=== PATIENT | female | born 1985 | race Caucasian/White ===

== ENCOUNTER 2022-06-19 21:35 | Emergency (ER) | payer BC, SELFPAY ==
[2022-06-19 22:33] VITALS: BP 152/95; PULSE 98; RESP 18; TEMP 37.6; O2SAT 98
[2022-06-20 00:08] VITALS: BP 164/85; PULSE 95; RESP 20; TEMP 37.1; O2SAT 97
--- NOTE | 2022-06-20 00:36 | ED.GENADULT ---
HPI - General Adult General Date Seen: 06/20/22 Chief complaint: Nausea/Vomiting Stated complaint: abdominal pain,vomiting Time Seen by Provider: 06/20/22 00:00 Source: patient Mode of arrival: ambulatory Limitations: no limitations History of Present Illness HPI narrative: Patient is a 37-year-old female who felt well until this afternoon when she developed nausea, vomiting, diarrhea. No fevers but some chills. No blood in her stool or vomit. She ate a ham and cucumber sandwich for lunch that she made a couple of days ago. It tasted fine but she is wondering if that is the cause. No one else at home has been ill. She also has some intermittent stomach cramps. Related Data Previous Rx's Medication Instructions Recorded ondansetron HCl 8 mg tablet 8 mg PO Q8H PRN nausea and 06/20/22 vomiting #15 tabs Allergies Allergy/AdvReac Type Severity Reaction Status Date / Time No Known Drug Allergies Allergy Verified 06/19/22 22:36 Review of Systems Narrative: Review of systems is outlined above otherwise noted to be negative. PFSH PFS Social History Smoking Status: Never smoker How often do you have a drink containing alcohol: never AUDIT-C Alcohol total score: 0 Non-prescribed substance use: denies use Exam Narrative: Exam Narrative: Vitals noted. HEENT: Conjunctiva clear. Tympanic membranes are pearly white bilaterally. Posterior pharynx is clear without erythema or exudate. Neck is supple without adenopathy, thyromegaly, carotid bruit. Lungs: Clear to auscultation in all ly. No wheezes, rales, rhonchi. Heart: Regular rate and rhythm without murmur. Abdomen: Soft and nontender. No guarding, rigidity, rebound. Bowel sounds are normal. No palpable masses. Extremities: No cyanosis or edema. Good distal pulses. Skin: No abnormalities noted of the exposed skin. Neurologic: Awake, alert, fully oriented. Neurologic exam is nonfocal. Const: Vital Signs, click to edit/add: Vital Signs - 24 hr 06/19/22 22:33 06/20/22 00:08 Temperature 99.7 F H 98.7 F Pulse Rate [Left P ulse Oximeter] 98 95 Respiratory Rate 18 20 Blood Pressure [Ri ght Upper Arm] 152/95 H 164/85 H Pulse Oximetry 98 97 Oxygen Delivery Me thod Room Air Room Air Course Course Hospital Course: Patient is seen and examined. IV is established and she received 1 L of lactated Ringer's. CBC, BMP, LFTs are ordered. She is given 30 mg of Toradol IV, 4 mg of Zofran IV. Reevaluation(s) Reevaluation #1: Basic metabolic panel and LFTs are normal. CBC shows a white blood count of 13,000, hemoglobin is 11.0 with an MCV of 70. Patient felt much better after the infusion. No vomiting in the department. She did have a couple of loose stools. Vital Signs Vital signs: Initial Vital Signs Temperature 99.7 F H 06/19/22 22:33 Temperature Source Temporal Artery Scan 06/19/22 22:33 Pulse Rate 98 06/19/22 22:33 Pulse Rhythm 06/19/22 22:33 Respiratory Rate 18 06/19/22 22:33 Blood Pressure 152/95 H 06/19/22 22:33 Blood Pressure Mean 114 06/19/22 22:33 Blood Pressure Position Semi-Fowlers 06/19/22 22:33 Pulse Oximetry 98 06/19/22 22:33 Oxygen Delivery Method 06/19/22 22:33 Vital Signs Temperature 99.7 F H 06/19/22 22:33 Pulse Rate 98 06/19/22 22:33 Respiratory Rate 18 06/19/22 22:33 Blood Pressure 152/95 H 06/19/22 22:33 Pulse Oximetry 98 06/19/22 22:33 Oxygen Delivery Method 06/19/22 22:33 Temperature 98.7 F 06/20/22 00:08 Pulse Rate 95 06/20/22 00:08 Respiratory Rate 20 06/20/22 00:08 Blood Pressure 164/85 H 06/20/22 00:08 Pulse Oximetry 97 06/20/22 00:08 Oxygen Delivery Method 06/20/22 00:08 Medical Decision Making Lab Data Labs: Lab Results 06/20/22 06/20/22 Range/Units 00:45 00:45 WBC 13.01 H (4.50-11.00) K/uL RBC 5.14 (4.00-5.20) m/uL Hgb 11.0 L (12.0-16.0) gm/dL Hct 36.1 (33.0-51.0) % MCV 70 L (80-100) fL MCH 21 L (26-34) pg MCHC 31 L (32-36) gm/dL RDW Coeff of Juliana 16.4 H (11.5-15.5) % Plt Count 222 (140-440) K/uL Neut % (Auto) 92.1 H (42.0-72.0) % Lymph % (Auto) 5.1 L (20-44) % [place]eth % (Auto) 2.1 (0.0-11.0) % Eos % (Auto) 0.3 (0.0-7.0) % Baso % (Auto) 0.2 (0.0-3.0) % Neut # (Auto) 12.00 H (1.7-7.0) K/uL Lymph # (Auto) 0.70 L (0.90-2.90) K/uL [place]eth # (Auto) 0.30 (0.00-0.90) K/UL Eos # (Auto) 0.00 (0.00-0.50) K/uL Baso # (Auto) 0.00 (0.00-0.30) K/uL Sodium 141 (135-149) mmol/L Potassium 3.8 (3.6-5.1) mmol/L Chloride 110 (96-114) mmol/L Carbon Dioxide 20 (20-32) mmol/L BUN 16 (5-24) mg/dL Creatinine 0.6 (0.5-1.5) mg/dL Estimated GFR 118 ml/min Glucose 138 H (60-115) mg/dL Calcium 8.9 (8.4-10.6) mg/dL Total Bilirubin 0.9 (0.1-1.5) mg/dL Direct Bilirubin 0.2 (0.0-0.5) mg/dL AST 24 (12-35) U/L ALT 25 (4-35) U/L Alkaline Phosphatase 79 (40-150) U/L Total Protein 8.2 (6.0-8.3) g/dL Albumin 4.7 (3.3-5.0) g/dL Discharge Plan Discharge Clinical Impression: Gastroenteritis Patient Disposition: Home, Self-Care Condition: Improved Additional Instructions: Clear liquids in frequent small amounts. Advance diet slowly as tolerated. Tylenol and Ibuprofen for pain. Zofran for nausea. Follow up in the clinic if not resolving over the next 2-3 days. Best to avoid anti-diarrhea meds for now. Prescriptions: New ondansetron HCl 8 mg tablet 8 mg PO Q8H PRN (Reason: nausea and vomiting) Qty: 15 0RF Follow Up/Referrals: Sonya Villanueva MD [Primary Care Provider] - Stand Alone Forms: [employer] Info Instructions
[2022-06-20] MEDS: KETOROLAC 30 MG/ML inj IVP (00:51)
[2022-06-20] MEDS: ONDANSETRON 2 MG/ML inj 4 MG IVP (00:51)
[2022-06-20] MEDS: LACTATED RINGERS 1000 ML 1,000 ML 500 ML IV (00:52)
[2022-06-20 01:01] LABS: Basophils Percent Auto 0.2 % (0.0-3.0); Eosinophils Percent Auto 0.3 % (0.0-7.0); Hematocrit 36.1 % (33.0-51.0); Immature Granulocytes Pct Auto 0.2 %; Lymphocytes Percent Auto 5.1 % (20-44); Mean Corpuscular HGB Conc 31 gm/dL (32-36); Mean Corpuscular Hemoglobin 21 pg (26-34); Mean Corpuscular Volume 70 fL (80-100); Monocytes Percent Auto 2.1 % (0.0-11.0); Neutrophils Percent Auto 92.1 % (42.0-72.0); Platelet Count* 222 K/uL (140-440); RDW Coefficient of Variation % 16.4 % (11.5-15.5); Red Blood Count 5.14 m/uL (4.00-5.20); White Blood Count* 13.01 K/uL (4.50-11.00)
[2022-06-20 01:03] LABS: Slide Review Reflex No
[2022-06-20 01:13] LABS: Albumin* 4.7 g/dL (3.3-5.0); Chloride* 110 mmol/L (96-114); Sodium* 141 mmol/L (135-149)
[2022-06-20 01:14] LABS: Potassium* 3.8 mmol/L (3.6-5.1)
[2022-06-20 01:16] LABS: Alanine Aminotransferase* 25 U/L (4-35); Alkaline Phosphatase* 79 U/L (40-150); Aspartate Amino Transferase* 24 U/L (12-35); Bilirubin Direct* 0.2 mg/dL (0.0-0.5); Bilirubin Total* 0.9 mg/dL (0.1-1.5); Blood Urea Nitrogen* 16 mg/dL (5-24); Calcium* 8.9 mg/dL (8.4-10.6); Carbon Dioxide* 20 mmol/L (20-32); Creatinine* 0.6 mg/dL (0.5-1.5); Estimated Glomerular Filt Rate 118 ml/min; Glucose* 138 mg/dL (60-115); Total Protein* 8.2 g/dL (6.0-8.3)
== END 2022-06-20 03:09 | disposition home or self-care (01) ==
PROVIDERS: Emergency Provider Family Medicine; PCP Family Medicine
DX: K52.9 Noninfective gastroenteritis and colitis, unspecified (principal)
CPT/HCPCS: 36415; 80048; 80076; 85025; 96374; 96375; 99283; 99284; J1885; J2405; J7120

== ENCOUNTER 2025-04-16 15:23 | Emergency (ER) | payer BC, SELFPAY ==
[2025-04-16] VITALS (19 sets, daily range): BP systolic 120–139; BP diastolic 73–85; PULSE 71–93; RESP 18; TEMP 36.2–37.1; O2SAT 93–100; BMI 33.3
--- NOTE | 2025-04-16 15:46 | ED.NAVMDI ---
HPI - Nausea/Vomiting/Diarrhea General Time Seen by Provider: 15:46 Date Seen: 04/16/25 Chief complaint: Nausea/Vomiting Stated complaint: throwing up for past three hours Time Seen by Provider: 04/16/25 15:46 Source: patient, RN notes reviewed and old records reviewed Mode of arrival: ambulatory Limitations: no limitations History of Present Illness HPI Narrative: Kristy is a 40-year-old female with history of hypertension, GERD who comes to the emergency room for evaluation of persistent vomiting and diarrhea. Earlier in the week Kristy child had vomiting diarrhea overnight. Patient had the sudden onset of vomiting at approximately 1300 hours that has been persisting over the last 3 hours and thus her brings her in to be evaluated. She has tried Zofran twice at home unfortunately it has not worked. She is experiencing loose stools as well. No blood in stools or vomit. It Her is here and he is well at this time. They have not traveled recently, taken any antibiotics or eaten any uncooked foods or had seafood recently. Related Data Home Medications ?Medication ?Instructions ?Recorded ?Confirmed fluticasone 250 mcg-salmeterol 50 1 ea inhalation Q12H 04/16/25 04/16/25 mcg/dose blistr powdr for inhalation gabapentin 100 mg capsule 100 mg PO QPM PRN 04/16/25 04/16/25 hydrochlorothiazide 25 mg tablet 25 mg PO DAILY 04/16/25 04/16/25 hydroxyzine pamoate 25 mg capsule 25 mg PO 3XD PRN anxiety 04/16/25 04/16/25 labetalol 100 mg tablet 100 mg PO BID 04/16/25 04/16/25 omeprazole 40 mg capsule,delayed 40 mg PO DAILY 04/16/25 04/16/25 release sertraline 50 mg tablet 75 mg PO QAM 04/16/25 04/16/25 Previous Rx's ?Medication ?Instructions ?Recorded ondansetron HCl 8 mg tablet 8 mg PO Q8H PRN nausea and 06/20/22 vomiting #15 tabs Allergies Allergy/AdvReac Type Severity Reaction Status Date / Time No Known Drug Allergies Allergy Verified 04/16/25 15:37 Review of Systems Status of ROS: Reports: unobtainable due to medical condition PFSH PFSH Social History Smoking Status: Never smoker How often do you have a drink containing alcohol: never AUDIT-C Alcohol total score: 0 Non-prescribed substance use: denies use Exam Narrative: Exam Narrative: Patient is awake able to follow commands but unable to talk because she has persistent violent heaving. She is sitting in the bed. Her answers most questions. Heart is slightly tachycardic. Lungs are clear. Abdomen is firm at this time because she is vomiting. She has a softball sized area of abrasion and bruising on her right anterior lateral calf. No surrounding erythema or signs of cellulitis. She is able to move all extremities. Const: Vital Signs, click to edit/add: Vital Signs - 24 hr 04/16/25 15:25 04/16/25 16:14 04/16/25 16:15 Temperature 97.1 F L Pulse Rate 71 72 Pulse Rate [Pulse Oximeter] 85 Respiratory Rate 18 Blood Pressure Blood Pressure [Ri ght Upper Arm] 120/85 Pulse Oximetry 100 93 93 Oxygen Delivery Me thod Room Air 04/16/25 16:18 04/16/25 16:30 04/16/25 16:32 Temperature Pulse Rate 74 74 75 Pulse Rate [Pulse Oximeter] Respiratory Rate Blood Pressure 138/73 130/74 Blood Pressure [Ri ght Upper Arm] Pulse Oximetry 99 98 98 Oxygen Delivery Me thod 04/16/25 16:45 04/16/25 17:00 04/16/25 17:02 Temperature Pulse Rate 77 92 78 Pulse Rate [Pulse Oximeter] Respiratory Rate Blood Pressure 135/80 Blood Pressure [Ri ght Upper Arm] Pulse Oximetry 99 98 99 Oxygen Delivery Me thod 04/16/25 17:15 04/16/25 17:30 04/16/25 17:32 Temperature Pulse Rate 75 79 77 Pulse Rate [Pulse Oximeter] Respiratory Rate Blood Pressure 130/76 Blood Pressure [Ri ght Upper Arm] Pulse Oximetry 99 98 99 Oxygen Delivery Me thod 04/16/25 17:45 04/16/25 18:00 04/16/25 18:03 Temperature Pulse Rate 82 89 88 Pulse Rate [Pulse Oximeter] Respiratory Rate Blood Pressure 138/74 Blood Pressure [Ri ght Upper Arm] Pulse Oximetry 98 98 98 Oxygen Delivery Me thod 04/16/25 18:15 04/16/25 18:30 04/16/25 18:32 Temperature Pulse Rate 88 93 91 Pulse Rate [Pulse Oximeter] Respiratory Rate Blood Pressure 139/73 Blood Pressure [Ri ght Upper Arm] Pulse Oximetry 99 98 98 Oxygen Delivery Me thod 04/16/25 18:43 Temperature 98.8 F Pulse Rate Pulse Rate [Pulse Oximeter] Respiratory Rate Blood Pressure Blood Pressure [Ri ght Upper Arm] Pulse Oximetry Oxygen Delivery Me thod Documenting provider has reviewed patient's vital signs: yes Course Course ED Course: Differential diagnosis is gastroenteritis, viral or bacterial, norovirus. We should consider small-bowel obstruction, biliary colic but given the fact that family members have had this I do think this most likely represents gastroenteritis. Will place IV give 1 L of normal saline, Compazine 2.5 mg and Benadryl 25 mg. I do not feel it is necessary to do any labs today as long as she is improved. If she has continued symptoms I would order CBC, comprehensive, CRP and urinalysis. Reevaluation(s) Reevaluation #1: Patient is much improved after medications. She is resting. Reevaluation #2: Patient is still resting. Will give her additional L No further vomiting noted. Reevaluation #3: Patient is feeling much better and will be going home. Did re-examine abdomen it is soft and nontender. Now alert oriented talking with good color. Vital Signs Vital signs: Initial Vital Signs Temperature 97.1 F L 04/16/25 15:25 Temperature Source Temporal Artery Scan 04/16/25 15:25 Pulse Rate 85 04/16/25 15:25 Respiratory Rate 18 04/16/25 15:25 Blood Pressure 120/85 04/16/25 15:25 Blood Pressure Mean 96 04/16/25 15:25 Blood Pressure Position Supine 04/16/25 15:25 Pulse Oximetry 100 04/16/25 15:25 Oxygen Delivery Method Room Air 04/16/25 15:25 Vital Signs Temperature 97.1 F L 04/16/25 15:25 Pulse Rate 85 04/16/25 15:25 Respiratory Rate 18 04/16/25 15:25 Blood Pressure 120/85 04/16/25 15:25 Pulse Oximetry 100 04/16/25 15:25 Oxygen Delivery Method Room Air 04/16/25 15:25 Temperature 98.8 F 04/16/25 18:43 Pulse Rate 91 04/16/25 18:32 Respiratory Rate 18 04/16/25 15:25 Blood Pressure 139/73 04/16/25 18:32 Pulse Oximetry 98 04/16/25 18:32 Oxygen Delivery Method Room Air 04/16/25 15:25 Medications Administered Medications: Discontinued Medications Generic Name Dose Route Start Last Admin Trade Name Freq PRN Reason Stop Dose Admin Diphenhydramine HCl 25 mg 04/16/25 15:53 04/16/25 15:57 Diphenhydramine 50 Mg/Ml Inj IVP 04/16/25 15:54 25 mg ONCE ONE Administration Sodium Chloride 1,000 mls @ 1,000 mls/hr 04/16/25 15:53 04/16/25 16:50 0.9 % Sodium Chloride 1000 Ml IV 04/16/25 16:52 Infused .Q1H MALIK Infusion Sodium Chloride 1,000 mls @ 1,000 mls/hr 04/16/25 17:35 04/16/25 17:58 0.9 % Sodium Chloride 1000 Ml IV 04/16/25 18:34 1,000 mls/hr .Q1H MALIK Administration Prochlorperazine 2.5 mg 04/16/25 15:53 04/16/25 15:59 Prochlorperazine 5 Mg/Ml Vial IV 2.5 mg Q6H PRN Administration MDM - Nausea/Vomiting/Diarrhea MDM Narrative Medical decision making narrative: 1. Nausea vomiting diarrhea-Zofran and tried at home which did not help. Patient is given IV fluids 2 L, Compazine 2.5 mg IV and Benadryl 25 mg IV. She is feeling much improved at this time. She is unlikely to have any further episodes of vomiting although it might happen and she could use her Zofran at home. However, it is my opinion she is probably over the worst of the vomiting. She may have continued diarrhea for the next few days. To. She is advised to stay as hydrated as possible. 2. Right leg injury-soft tissue injury. No evidence of cellulitis. 3. Disposition-home at this time with her . I have asked her to return for worsening symptoms and as needed. We were unable to get a stool sample here in the ER today. Medical Records Attestation: I reviewed the patient's medical records. Discharge Plan Discharge Clinical Impression: Nausea vomiting and diarrhea Patient Disposition: Home, Self-Care Condition: Improved Additional Instructions: Push fluids as much as possible. The vomiting should be done at this time or you will probably only experience a few more episodes. Zofran may be used at home if needed. Unfortunately the diarrhea may continue for the next 3 days. [place] foods to include rice, toast, bananas etc. may be helpful. Try to stay as hydrated as possible. Return as needed for worsening symptoms. Prescriptions: No Action ondansetron HCl 8 mg tablet 8 mg PO Q8H PRN (Reason: nausea and vomiting) Qty: 15 0RF fluticasone propion-salmeterol 250-50 mcg/dose blister with device 1 ea INHALATION Q12H omeprazole 40 mg capsule,delayed release(DR/EC) 40 mg PO DAILY hydrochlorothiazide 25 mg tablet 25 mg PO DAILY gabapentin 100 mg capsule 100 mg PO QPM PRN labetalol 100 mg tablet 100 mg PO BID sertraline 50 mg tablet 75 mg PO QAM hydroxyzine pamoate 25 mg capsule 25 mg PO 3XD PRN (Reason: anxiety) Follow Up/Referrals: Sonya Villanueva MD [Primary Care Provider, Family Practice] Stand Alone Forms: [employer] Info Instructions
[2025-04-16] MEDS: PROCHLORPERAZINE 5 MG/ML VIAL 2.5 MG IV (15:59)
--- OUTSIDE RECORDS SUMMARY | 2025-04-16 16:02 | XMS_ITS | Clinical Summary ---
Author Organization [facility] Address [address] [place] [id number] Care Team Providers Care Electronic Gluer Name Role Phone Tracy Russell MD Primary Care Provide r Allergies No known active allergies Medications fluticasone (50 mcg per actuation) nasal solution (FLONASE)Indicati ons:Environmental allergies Inhale 2 Sprays in the nostril(s) once daily. 48 mL 1 12/04/19 19 Active albuterol HFA (PRO-AIR; VENTOLIN; PROVENTIL) 90 mcg/actuation inhalerIndication s:Mild intermittent asthma with exacerbation (HC) INHALE 1-2 PUFFS BY MOUTH EVERY 4 HOURS IF NEEDED. 8.5 g 3 03/28/20 22 Active cyclobenzaprine (FLEXERIL) 10 mg tabletIndications :Chronic nonintractable headache, unspecified headache type Take 1 Tablet (10 mg) by mouth 3 times daily if needed for Muscle Spasm. 30 Tablet 03/07/20 23 Active ondansetron (ZOFRAN ODT) 8 mg disintegrating tabletIndications :Chronic nonintractable headache, unspecified headache type Place 1 Tablet (8 mg) on the tongue every 8 hours if needed for Nausea/Vomit ing. 30 Tablet 03/07/20 23 Active cetirizine (ZYRTEC) 10 mg tablet Take 1 Tablet (10 mg) by mouth once daily. 0 03/07/20 23 Active gabapentin 100 mg capsuleIndication s:Restless legs syndrome (RLS) 100mg po qhs prn 30 Capsule 10 08/21/19 25 Active polyethylene glycol-electrolyt e 236-22.74-6.74 -5.86 gram suspensionIndicat ions:Encounter for screening colonoscopy Drink 2 liters (half the bottle) the day before the procedure and 2 liters (half the bottle) 6 hours prior to procedure. 4000 mL 10/16/19 25 Active labetaloL (TRANDATE) 100 mg tabletIndications :Hypertension TAKE 1 TABLET BY MOUTH TWICE A DAY 180 Tablet 2 01/03/20 25 Active hydrOXYzine pamoate (VISTARIL) 25 mg capsuleIndication s:KASEY (generalized anxiety disorder) Take 1 Capsule (25 mg) by mouth 3 times daily if needed for Anxiety. 30 Capsule 3 01/03/20 25 Active omeprazole (PRILOSEC) 40 mg Delayed-Release capsuleIndication s:Gastroesophagea l reflux disease, unspecified whether esophagitis present TAKE 1 CAPSULE (40 MG) BY MOUTH ONCE DAILY BEFORE A MEAL. 90 Capsule 2 01/24/20 25 Active fluticasone propion-salmetero L (ADVAIR) 250-50 mcg/Dose diskus inhalerIndication s:Moderate persistent asthma without complication (HC) INHALE 1 PUFF BY MOUTH EVERY 12 HOURS. 180 Each 3 01/25/20 25 Active hydroCHLOROthiazi de 25 mg tabletIndications :Hypertension TAKE 1 TABLET (25 MG) BY MOUTH ONCE DAILY. 90 Tablet 1 02/13/20 25 Active sertraline (ZOLOFT) 50 mg tabletIndications :KASEY (generalized anxiety disorder) TAKE 1 AND 1/2 TABLETS BY MOUTH ONCE DAILY IN THE MORNING. 135 Tablet 1 03/27/20 25 Active sertraline 50 mg tabletIndications :KASEY (generalized anxiety disorder) Take 1.5 Tablets (75 mg) by mouth once daily in the morning. 135 Tablet 1 09/15/19 25 025 Discontinued Hospital, Clinic, or Other Facility Administered Medication Ordered Dose Route Frequency Start Date End Date Status levonorgestrel (MIRENA) 20 mcg/24 hours (8 yrs) 52 mg intrauterine device (IUD) 1 DeviceIndications:Encounter for IUD insertion 1 Device IU Q 8 YEARS 08/01/2022 08/01/2030 Active Active Problems Problem Noted Date Diagnosed Date Colon polyp 11/05/2024 Overview (11/05/2024): Colonoscopy 10/2024 TA, repeat in 5 years Hypertension 04/05/2023 Pap smear for cervical cancer screening 05/24/19 23 Overview (05/24/2022): 04/2022 NIL/HPV Negative Plan: Pap and HPV 04/2027 Thrombocytopenia 12/22/2019 Overview (12/22/2019): Range 110s-130s. Will need further evaluation PP Encounter for supervision of other normal , unspecified trimester 12/17/2019 Allergic rhinitis due to animal (cat) (dog) hair and dander 02/11/2013 Allergic rhinitis due to pollen 02/11/2013 Moderate persistent asthma 07/16/2011 Resolved Problems Problem Noted Date Diagnosed Date Resolved Date , delivered 10/16/2015 11/28/2015 Retained placenta with hemorrhage 10/16/2015 11/28/2015 Desires (vaginal after ) trial 08/05/2015 11/28/2015 History of delivery 08/05/2015 11/28/2015 Supervision of other normal , antepartum 02/20/2015 11/28/2015 Overview (10/04/2015): Healthy multip. History of c/s for arrest of descent at +2 station. CARINE with normal labor course. O/p presentation. Prefers minimal intervention Dating: by LMP Ped: keven BOY Breast: yes Circ: yes : minal Big Sister: fredy Moving to [place] in October. Plans to continue care in Arrest of descent, delivered , current hospitalization 09/06/2013 10/26/2013 delivery delivered 09/06/2013 10/26/2013 care and examinat ion of lactating mother 09/06/2013 02/20/2015 Hyperemesis gravidarum with dehydration 02/22/2013 06/27/2013 Allergic rhinitis due to other allergen 02/11/2013 02/20/2015 Moderate persistent asthma 02/03/2013 0 10/26/2013 Rh negative status during 02/03/2013 10/26/2013 Mild hyperemesis gravidarum, antepartum 01/23/2013 06/27/2013 Overview (01/23/2013): 01/21/13: 2 liters IV fluids w/zofran; home with rx zofran; Supervision of normal first 01/21/2013 10/26/2013 Overview (07/24/2013): Primip Asthma, well controlled SHAKIR: 08/25/13 per LMP; confirmed by 10 week ultrasound Mild hyperemesis, iv hydration times one and zofran RH NEGATIVE: rhogam given 06/08 at 28 wks TDAP and flu done Patient prefers no epidural, minimal intervention Hep B: no Circ: yes Breast only Ped: keven Allergic rhinitis due to ani mal (cat) (dog) hair and dander 12/12/2012 02/03/2013 Allergic rhinitis due to other allergen 12/12/2012 02/03/2013 Allergic rhinitis due to pollen 12/12/2012 02/03/2013 Asthma 12/12/2012 02/03/2013 Unspecified vitamin D deficiency 12/08/2012 11/28/2015 preventive health maintainance 12/05/2012 02/03/2013 Overview (12/05/2012): PE 12/05/12 Pap smear 12/05/12 Cholesterol 12/05/12 Heart murmur 12/05/2012 01/21/2013 Overview (01/21/2013): Normal echo; Unspecified asthma(493.90) 07/16/2011 0 02/03/2013 Environmental allergies 07/16/201106/13 Overview (02/03/2013): Pollen, animals Environmental allergies 07/16/201111/10 Encounters Date Type Department Care Team Description 03/26/2025 Refill [facility] [address] [place] [address] Tracy Russell MD Refill Request (Sertraline) 02/24/2025 7:50 AM CDT Nurse/Clinic Staff Only [facility] [address] [facility] [place] [id number] Immunization/Inject ion 02/23/2025 Travel 02/11/2025 Refill [facility] [address] [place] [address] Tracy Russell MD Refill Request (Hydrochlorothiazid e) 02/09/2025 8:30 AM CDT Telemedicine [facility] [address] [place] [address] Medical Nutrition Therapy; Telehealth 02/09/2025 Travel 01/21/2025 Refill [facility] [address] [place] [address] Tracy Russell MD Refill Request (Omeprazole, Fluticasone Propion-salmeterol) from Last 3 Months Immunizations Immunization Administration Dates Next Due COVID-19 VACCINE SPIKEVAX (M ODERNA 50MCG/0.5ML) 12YO+ PFS 01/30/2024,03/22/2023 COVID-19 vaccine (Moderna 100mcg/0.5mL) PF, MDV 09/08/2020,08/11/2020 INFLUENZA, IIV3 PF (AGE >= 6 MO) 02/24/2025,01/11 Influenza, IIV4 02/18/2023,,01/21/2020,2018,01/29/2017,01/26/2016,03/10/2015,1 05/18/2013 Influenza, IIV4 (=>6mos) MDV 03/14/2022 Pneumococcal Poly,23-Valent (Pneumovax) 03/07/2021 Tdap 03/29/2020,07/21/2015,06/08/2013 Family History Medical History Relation Name Comments Allergies Brother 2 Asthma Brother 3 Colon polyps Father Hypertension Father Cancer Maternal Aunt uterine cancer Diabetes Maternal Grandmother Allergies Mother Asthma Mother Colon polyps Mother Cancer Paternal Grandfather Bladder Heart Disease Paternal Grandfather [employer] Arthritis Paternal Grandmother Rheumat oid Heart Disease Paternal Grandmother Allergies Sister 2 Asthma Sister 3 Relation Name Status Comments Brother 1 Alive Brother 2 Alive Brother 3 Alive Brother 4 Alive Father Alive Maternal Aunt Maternal Grandfather Alive Maternal Grandmother Alive Mother Alive Paternal Grandfather Alive Paternal Grandmother Alive Sister 1 Alive Sister 2 Alive Sister 3 Alive Sister 4 Alive Social History Tobacco Use Types Packs/Day Years Used Date Smoking Tobacco: Never Smokeless Tobacco: Never Tobacco Cessation:Counseling Given: Yes Alcohol Use Standard Drinks/Week Comments Yes 0 (1 standard drink = 0.6 oz pur e alcohol) minor PHQ-2 Answer Date Recorded PHQ-2 TOTAL SCORE 2 10/13/2024 Social Connections Answer Date Recorded Do you often feel lonely or isolated from those around you? 0 10/12/2024 Financial Resource Strain Answer Date R ecorded Difficulty of Paying Living Expenses 3 10/12/2024 Difficulty of Paying Living Expenses Not on file 10/12/2024 Food Insecurity Answer Date Recorded Do you worry your food will run out before you are able to buy more? 1 10/12/2024 Transportation Needs Answer Date Record ed Does lack of transportation keep you from medica l appointments? 1 10/12/2024 Does lack of transportation keep you from work, meetings or getting things that you need? 1 10/12/2024 Housing Stability Answer Date Recorded What is your housing situation today? 1 10/12/2024 Utilities Answer Date Recorded Do you have trouble paying f or utilities (for example, heat, electricity, water, phone)? 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 Please review and update details. 2015 Term 40w 6d 3.29 kg (7 lb 4 oz) M Vag N Livin g Finn Elizabeth MD Comments Patient with carine,nl labor. A rrest of descent at +2 station. Last Filed Vital Signs Vital Sign Reading Time Taken Comments Blood Pressure 108/72 10/13/2024 11:38 AM CDT Pulse 65 10/13/2024 11:38 AM CDT Temperature 36.8 C (98.2 F) 01/21/2020 1:34 PM CDT Respiratory Rate 16 04/02/2023 10:56 AM RESERVOIR CARETAKER Oxygen Saturation 98% 10/13/2024 11:38 AM CDT Inhaled Oxygen Concentration - - Weight 92.4 kg (203 lb 9.6 oz) 10/13/2024 11:38 AM CDT Height 165.3 cm (5' 5.08) 10/13/2024 11:38 AM C DT Body Mass Index 33.8 10/13/2024 11:38 AM CDT Plan of Treatment Upcoming Encounters Date Type Department Care Team (Late st Contact Info) Description 05/04/2025 8:30 AM RESERVOIR CARETAKER Telemedicine [address] [phone] [address], [address] [place], [place] [id number] Health Maintenance Due Date Last Done Comments Hepatitis B series for 19+ ( 1 of 3 - 19+ 3-dose series) 02/06/2003 HPV series for age 9-45 (1 - 3-dose SCDM series) 02/06/2011 Pneumococcal series for age 6-49 (2 of 2 - PCV) 03/07/2022 03/07/2021 COVID-19 vaccine series (2024- season) 2025 01/30/2024, 03/22/2023, 01/18/2022, Additional history exists BMI (ht and wt on same day) for age 18+ 10/13/2025 10/13/2024, 05/29/2023, 04/19/2022, Additional history exists Depression screening for age 12+ 10/13/2025 10/13/2024, 08/26/2024, 05/29/2023, Additional history exists Pap test for age 21-65 04/19/2027 , 04/19/2022, 12/01/2018, Additional history exists Colonoscopy through age 75 11/03/2029 11/03/2024 Tetanus booster 03/29/2030 03/29/2020, 03/1 , 06/08/2013 RSV vaccine for adults or (1 - 1-dose 75+ series) 02/06/2059 HIV for age 15-65 Completed 12/17/2019, , 02/02/2013 Hepatitis C screening for ag e 18-79 Completed 12/17/2019, 03/31/2015, 08/14/2013 Influenza Vaccine Completed 02/24/2025, , 02/18/2023, Additional history exists Procedures Procedure Name Priority Date/Time Associated Diagnosis Comments COLONOSCOPY SCREENING Routine 11/03/2024 12:00 AM CDT Family history of colon polyps, unspecified SHERIFFS THIN PREP PAP SCREEN IMAGED Routine 04/19/2022 11:45 AM RESERVOIR CARETAKER Pap smear for cervical cancer screening ANTI HIV 1/2 Routine 12/17/2019 12:00 PM CDT Supervision of other normal , antepartum (HC) ANTI HCV Routine 12/17/2019 12:00 PM CDT Supervision of other normal , antepartum (HC) from Last 3 Months or Most Recently Relevant to Health Maintenance Results * COLONOSCOPY SCREENING (11/03/2024 12:00 AM CDT) us Tracy Russell MD GI PROCEDURE ORD Melinda l Result * SHERIFFS THIN PREP PAP SCREEN IMAGED (04/19/2022 11:45 AM RESERVOIR CARETAKER) Case Report Gynecologic Cytology Report Case: [id number] Authorizing Provider: Tracy Russell, Collected: 04/19/2022 1145 Ordering Location: [facility] Received: 04/19/2022 1241 Clinic First Screen: Joce Suarez Specimen: SHERIFFS ThinPrep Vial Screening, Cervical 05/09/2022 12:28 PM RESERVOIR CARETAKER [facility] [employer] [facility] INTERPRETATION/ RESULT NEGATIVE FOR INTRAEPITHELIAL LESION OR MALIGNANCY (NIL) (none) 05/09/2022 12:28 PM RESERVOIR CARETAKER [facility] ENTRHI LABORATORY at 1228 RESERVOIR CARETAKER SPECIMEN ADEQUACY Satisfactory for evaluation No endocervical component seen 05/09/2022 12:28 PM RESERVOIR CARETAKER [facility] HPV REQUEST HPV and PAP 05/09/2022 12:28 PM RESERVOIR CARETAKER [facility] Date of LMP 04/07/2022 05/09/2022 12:28 PM RESERVOIR CARETAKER [facility] Last Pap Date 12/01/18 05/09/2022 12:28 PM RESERVOIR CARETAKER [facility] Last Pap Result NIL 12:28 PM RESERVOIR CARETAKER [facility] Abnormal Pap or [place] Bx in last 5 years No 05/09/2022 12:28 PM RESERVOIR CARETAKER [facility] Menstrual Status Regular Periods 05/09/2022 12:28 PM RESERVOIR CARETAKER [facility] [place] Bx Done Today No 05/09/2022 12:28 PM RESERVOIR CARETAKER [facility] Additional Information None given 05/09/2022 12:28 PM RESERVOIR CARETAKER [facility] Comment: Cytology is screened at [facility], Central Laboratory - [address], [place] [address] and [facility] - [address], [place] [address] and [facility] - [address] [facility] [place] [address] Interpreted at [facility] Central Laboratory - [address], [place] [address] Automated Review Successful 05/09/2022 12:28 PM RESERVOIR CARETAKER [facility] EN[facility] Comment:Specimen processed s uccessfully by automated bit bender device, ThinPrep Imaging System, [employer] ANCILLARY TESTING SHERIFFS HPV Ordered, Please see separate report 05/09/2022 12:28 PM RESERVOIR CARETAKER [facility] ENTRAL LABORAT[facility] Note The pap test is a screening technique, not a diagnostic procedure. It is used primarily to screen for squamous cancers and precursor lesions. Published studies have shown that it is subject to both false negative and false positive results. The pap test should not be used as the sole means to diagnose or exclude pre-malignant and malignant lesions. 05/09/2022 12:28 PM RESERVOIR CARETAKER [facility]- ENTRAL LABORATORY Other (Cervical) Non-Blood / Unknown 04/19/2022 11:45 AM RESERVOIR CARETAKER 04/19/2022 12:41 PM RESERVOIR CARETAKER Tracy Russell MD PATHOLOGY/CYTOLOGY Fi nal Result Performing Organization Address City/[facility]/ZIP Co de Phone Number [facility] [address] [place] [address], [place] * ANTI HCV (12/17/2019 12:00 PM CDT) HEPATITIS C ANTIBODY Non-React mio Non-React mio 12/17/2019 7:46 PM CDT [facility] TRAL LABORAT[facility] Comment:Antibodies to HCV no t detected; does not exclude the possibility of exposure to HCV. Blood BLOOD SPECIMEN / Unknown Venipuncture / Unknown 12/17/2019 12:00 PM CDT 12/17/2019 12:00 PM CDT Tracy Russell MD SEND OUTS Final Result [facility] [address] [place] [address], [place] * ANTI HIV 1/2 (12/17/2019 12:00 PM CDT) HIV-1/HIV-2 ANTIBODY Non-Reacti ve Non-Reacti ve 12/17/2019 7:49 PM CDT [facility] Comment:HIV-1 p24 and HIV-1/ HIV-2 Ab not detected. Blood BLOOD SPECIMEN / Unknown Venipuncture / Unknown 12/17/2019 12:00 PM CDT 12/17/2019 12:00 PM CDT us Tracy Russell MD SEND OUTS Final Result [facility]TRAL LABORATORY [address] [place] [address], [place] from Last 3 Months or Most Recently Relevant to Health Maintenance Insurance [employer] [place] [employer] Advance Directives * Full Code (Latest Code Status on File) Date Activated Date Inactivated Comments 10/16/2015 5:33 AM 10/17/2015 3:12 PM Question Answer Comments Code Status Discussion: Discussed * Full Code Date Activated Date Inactivated Comments 10/16/2015 3:41 AM 10/16/2015 5:33 AM * Full Code Date Activated Date Inactivated Comments 09/06/2013 5:27 AM 09/09/2013 3:53 PM * Full Code Date Activated Date Inactivated Comments 09/06/2013 3:31 AM 09/06/2013 5:27 AM * Full Code Date Activated Date Inactivated Comments 09/04/2013 10:52 PM 09/06/2013 3:31 AM Care Teams Electronic Gluer Relationship Specialty Start Date End Date Tracy Russell MD [address] [place] [address] PCP - General Family Practice 09/04/13
== END 2025-04-16 18:44 | disposition home or self-care (01) ==
PROVIDERS: Emergency Provider Family Medicine; PCP Family Medicine
DX: R11.2 Nausea with vomiting, unspecified (principal); R19.7 Diarrhea, unspecified
CPT/HCPCS: 87507; 96361; 96374; 96375; 99284; J0780; J1200; J7030